=== PATIENT | male | born 1995 | race Caucasian/White ===

== ENCOUNTER 2022-06-26 01:38 | Emergency (ER) | payer MEDICAID ==
[~2022-06-26] VITALS: Ht 190.5 cm; Wt 86.4 kg
[2022-06-26 01:53] VITALS: BP 135/71
== END 2022-06-26 02:07 ==
LOC: ER 01:39
DX: S61.012A Laceration without foreign body of left thumb without damage to nail, initial encounter (principal); F17.200 Nicotine dependence, unspecified, uncomplicated; V87.7XXA Person injured in collision between other specified motor vehicles (traffic), initial encounter; Y93.89 Activity, other specified; Y92.89 Other specified places as the place of occurrence of the external cause; Y99.8 Other external cause status
CPT/HCPCS: 99283